=== PATIENT | female | born 1940 | race African-American/Black ===

== ENCOUNTER 2016-11-10 09:03 | Outpatient (CLI) | payer MEDICARE ==
[2010-10-19 10:29] VITALS: BMI 29.1
== END 2016-11-10 09:38 ==
LOC: D.MAMMO 09:03
DX: Z12.31 Encounter for screening mammogram for malignant neoplasm of breast (principal)

== ENCOUNTER → 2016-11-12 14:05 | Outpatient (CLI) | payer MEDICARE ==
[2010-10-19 10:29] VITALS: BMI 29.1
== END | disposition home or self-care (01) ==
LOC: D.MRI 14:05
DX: M25.512 Pain in left shoulder (principal)

== ENCOUNTER → 2017-07-08 08:45 | Outpatient (CLI) | payer MEDICARE ==
[2010-10-19 10:29] VITALS: BMI 29.1
== END | disposition home or self-care (01) ==
LOC: D.MAMMO 08:45
DX: N64.4 Mastodynia (principal); R60.0 Localized edema

== ENCOUNTER → 2017-12-09 15:19 | Outpatient (CLI) | payer MEDICARE ==
[2010-10-19 10:29] VITALS: BMI 29.1
[2017-12-09 16:12] LABS: CALC OSMOLALITY 285 mosm/kg (275-300); CALCIUM 8.7 mg/dL (8.5-10.1); CARBON DIOXIDE 27.2 mmol/L (21.0-32.0); CHLORIDE - SERUM 109 mmol/L (98-107); CREATININE - SERUM 0.6 mg/dL (0.6-1.3); GLUCOSE 93 mg/dL (74-106); POTASSIUM - SERUM 3.8 mmol/L (3.5-5.1); SODIUM 144 mmol/L (136-145); UREA NITROGEN 11 mg/dL (7-18); eGFR NON AFRICAN AMERICAN > 90 mL/min (90-120)
== END | disposition home or self-care (01) ==
LOC: D.LAB 15:19 → D.CT 16:00
PROVIDERS: Internal Medicine Pulmonary Disease
DX: R06.00 Dyspnea, unspecified (principal)

== ENCOUNTER → 2018-01-06 12:48 | Outpatient (CLI) | payer MEDICARE ==
[2010-10-19 10:29] VITALS: BMI 29.1
== END | disposition home or self-care (01) ==
LOC: D.RT 12:48
DX: R06.00 Dyspnea, unspecified (principal)

== ENCOUNTER → 2018-01-31 16:08 | Outpatient (CLI) | payer MEDICARE ==
[2010-10-19 10:29] VITALS: BMI 29.1
== END | disposition home or self-care (01) ==
LOC: D.MRI 16:08
DX: R51 Headache (principal); M54.2 Cervicalgia

== ENCOUNTER 2019-01-11 09:00 | Outpatient (CLI) | payer MEDICARE, MEDICAID ==
[2010-10-19 10:29] VITALS: BMI 29.1
== END 2019-01-11 10:00 | disposition home or self-care (01) ==
LOC: D.MAMMO 09:00
PROVIDERS: ATTEND Obstetrics & Gynecology
DX: Z85.3 Personal history of malignant neoplasm of breast (principal)

== ENCOUNTER → 2019-05-25 08:11 | Outpatient (CLI) | payer MEDICARE, MEDICAID ==
[2010-10-19 10:29] VITALS: BMI 29.1
== END | disposition home or self-care (01) ==
LOC: D.NM 08:11
PROVIDERS: ATTEND Legal Medicine
DX: M85.80 Other specified disorders of bone density and structure, unspecified site (principal); Z78.0 Asymptomatic menopausal state

== ENCOUNTER → 2019-07-02 10:11 | Outpatient (CLI) | payer MEDICARE, MEDICAID ==
[2010-10-19 10:29] VITALS: BMI 29.1
== END | disposition home or self-care (01) ==
LOC: D.CT 10:11
PROVIDERS: ATTEND Family Medicine
DX: R10.9 Unspecified abdominal pain (principal); K59.00 Constipation, unspecified; R31.21 Asymptomatic microscopic hematuria

== ENCOUNTER 2019-08-16 16:40 | Emergency (ER) | payer MEDICARE, MEDICAID ==
[~2019-08-16] VITALS: Ht 165.1 cm; Wt 72.3 kg
[2019-08-16 16:50] VITALS: Ht 165.1 cm; Wt 72.3 kg
[2019-08-16] MEDS ORDERED: CIPRO500 MG PO (17:40)
[2019-08-16] MEDS ORDERED: CRESTOR10 MG PO (17:40)
[2019-08-16] MEDS ORDERED: CYCLOBENZAPRINE10 MG PO (17:41)
[2019-08-16] MEDS ORDERED: LUMIGAN 0.01%2.5 ML EACH EYE (17:42)
[2019-08-16 17:55] LABS: BASOPHILS 0.4 % (0-2); EOSINOPHILS 3.1 % (0-7); HEMATOCRIT 38.1 % (36.0-48.0); HEMOGLOBIN 12.5 g/dL (12-16); LYMPHOCYTES 34.7 % (15-50); MCH 30.9 pg (26.0-34.0); MCHC 32.8 g/dL (31.0-37.0); MCV 94.1 fL (80.0-100.0); MEAN PLATELET VOLUME 9.7 fL (7.4-10.4); MONOCYTES 7.1 % (2-11); NEUTROPHILS 54.7 % (40-80); PLATELET COUNT 196 10x3/uL (130-400); RBC 4.05 10x6/uL (4.00-5.40); RDW 13.1 % (11.5-14.5); WBC 4.8 10x3/uL (4.8-10.8)
[2019-08-16 18:07] LABS: CALC OSMOLALITY 285 mosm/kg (275-300); CARBON DIOXIDE 28.3 mmol/L (21.0-32.0); CHLORIDE - SERUM 108 mmol/L (98-107); CREATININE - SERUM 0.8 mg/dL (0.6-1.3); GLUCOSE 86 mg/dL (74-106); POTASSIUM - SERUM 3.8 mmol/L (3.5-5.1); SODIUM 144 mmol/L (136-145); UREA NITROGEN 13 mg/dL (7-18); eGFR NON AFRICAN AMERICAN 74 mL/min (90-120)
[2019-08-16 18:13] LABS: ALBUMIN 3.5 g/dL (3.4-5.0); ALKALINE PHOSPHATASE 48 U/L (30-120); ALT (SGPT) 23 U/L (10-68); AMYLASE - SERUM 122 U/L (25-115); BILIRUBIN - TOTAL 0.67 mg/dL (0.2-1.3); LIPASE 149 U/L (73-393); PROTEIN - SERUM 7.4 g/dL (6.4-8.2)
[2019-08-16 18:16] LABS: TROPONIN-I < 0.017 ng/mL (0.000-0.060)
[2019-08-16 18:30] LABS: BILIRUBIN NEGATIVE (NEGATIVE); GLUCOSE NEGATIVE (NEGATIVE); KETONE NEGATIVE (NEGATIVE); NITRITE NEGATIVE (NEGATIVE); UROBILINOGEN NORMAL (NORMAL)
[2019-08-16 18:33] LABS: BACTERIA NONE SEEN /hpf (NEGATIVE); RED CELLS - URINE RARE /hpf (0-5); WHITE CELLS - URINE 0-5 /hpf (NEGATIVE)
[2019-08-16 20:23] VITALS: BP 153/85
== END 2019-08-16 20:20 | disposition home or self-care (01) ==
LOC: D.ER 16:40
PROVIDERS: Family Medicine
DX: K59.00 Constipation, unspecified (principal)

== ENCOUNTER 2019-08-24 21:42 | Observation (INO) | payer MEDICARE, MEDICAID ==
[~2019-08-24] VITALS: Ht 162.6 cm; Wt 74.6 kg
[~2019-08-24 21:42] MED LIST: CIPRO500 MG PO; CRESTOR10 MG PO; CYCLOBENZAPRINE10 MG PO; LUMIGAN 0.01%2.5 ML EACH EYE
[2019-08-24] MEDS ORDERED: AMOXICILLIN500 M1 PO (21:56)
[2019-08-24 22:29] LABS: BILIRUBIN NEGATIVE (NEGATIVE); GLUCOSE NEGATIVE (NEGATIVE); KETONE NEGATIVE (NEGATIVE); NITRITE NEGATIVE (NEGATIVE); UROBILINOGEN NORMAL (NORMAL)
[2019-08-24 22:31] LABS: CALC OSMOLALITY 272 mosm/kg (275-300); CALCIUM 9.1 mg/dL (8.5-10.1); CARBON DIOXIDE 27.9 mmol/L (21.0-32.0); CHLORIDE - SERUM 106 mmol/L (98-107); CREATININE - SERUM 0.6 mg/dL (0.6-1.3); GLUCOSE 89 mg/dL (74-106); POTASSIUM - SERUM 4.8 mmol/L (3.5-5.1); RED CELLS - URINE OCC /hpf (0-5); SODIUM 137 mmol/L (136-145); UREA NITROGEN 12 mg/dL (7-18); WHITE CELLS - URINE OCC /hpf (NEGATIVE); eGFR NON AFRICAN AMERICAN > 90 mL/min (90-120)
[2019-08-24 22:32] VITALS: BP 151/81
[2019-08-24 22:40] LABS: ALBUMIN 3.3 g/dL (3.4-5.0); ALKALINE PHOSPHATASE 51 U/L (30-120); ALT (SGPT) 21 U/L (10-68); AMYLASE - SERUM 84 U/L (25-115); LIPASE 93 U/L (73-393); PROTEIN - SERUM 7.2 g/dL (6.4-8.2); TROPONIN-I < 0.017 ng/mL (0.000-0.060)
[2019-08-24 22:51] LABS: BASOPHILS 0.4 % (0-2); EOSINOPHILS 3.2 % (0-7); HEMATOCRIT 35.8 % (36.0-48.0); IMMATURE GRANULOCYTES 0.2 % (0-5); LYMPHOCYTES 35.9 % (15-50); MCH 30.9 pg (26.0-34.0); MCHC 33.5 g/dL (31.0-37.0); MCV 92.3 fL (80.0-100.0); MEAN PLATELET VOLUME 9.5 fL (7.4-10.4); MONOCYTES 9.7 % (2-11); NEUTROPHILS 50.6 % (40-80); PLATELET COUNT 192 10x3/uL (130-400); RBC 3.88 10x6/uL (4.00-5.40); WBC 5.3 10x3/uL (4.8-10.8)
--- NOTE | 2019-08-25 02:20 | NUR ---
RECEIVED PT TO FLOOR FROM ER VIA WHEELCHAIR ACCOMPANIED BY FAMILY. REVIEWED HISTORY AND HOME MEDS. ASSESSMENT COMPLETE PER FLOWSHEET. ADMINISTERED ONE FLEETS ENEMA. PT HAD MEDIUM SOFT BROWN STOOL. PATRIA TORO ROUNDED. WILL REPEAT FLEETS ENEMA IN TWO HOURS. NO OTHER NEEDS. WILL CONTINUE TO MONITOR.
[2019-08-25 03:30] VITALS: BP 150/88; Ht 162.6 cm; Wt 74.6 kg
[2019-08-25 04:00] VITALS: BP 136/65
--- NOTE | 2019-08-25 05:18 | NUR ---
I have reviewed this patient and I concur with the Shift Assessment completed by the Licensed Practical Nurse today this shift.
[2019-08-25 06:41] LABS: BASOPHILS 0.2 % (0-2); HEMATOCRIT 36.3 % (36.0-48.0); HEMOGLOBIN 12.2 g/dL (12-16); IMMATURE GRANULOCYTES 0.2 % (0-5); LYMPHOCYTES 24.7 % (15-50); MCH 30.9 pg (26.0-34.0); MCHC 33.6 g/dL (31.0-37.0); MCV 91.9 fL (80.0-100.0); MEAN PLATELET VOLUME 9.7 fL (7.4-10.4); MONOCYTES 10.7 % (2-11); NEUTROPHILS 61.2 % (40-80); PLATELET COUNT 178 10x3/uL (130-400); RBC 3.95 10x6/uL (4.00-5.40); RDW 12.9 % (11.5-14.5); WBC 5.6 10x3/uL (4.8-10.8)
[2019-08-25 06:46] LABS: APTT 33.3 SECONDS (22.8-39.4); INR 1.06 (0.85-1.17); PROTIME 13.7 SECONDS (11.6-15.0)
[2019-08-25 06:54] LABS: ALBUMIN 3.3 g/dL (3.4-5.0); ALKALINE PHOSPHATASE 44 U/L (30-120); ALT (SGPT) 17 U/L (10-68); BILIRUBIN - TOTAL 0.77 mg/dL (0.2-1.3); CALCIUM 8.5 mg/dL (8.5-10.1); CARBON DIOXIDE 26.6 mmol/L (21.0-32.0); CHLORIDE - SERUM 108 mmol/L (98-107); CREATININE - SERUM 0.6 mg/dL (0.6-1.3); GLUCOSE 96 mg/dL (74-106); MAGNESIUM - SERUM 1.8 mg/dL (1.8-2.4); PROTEIN - SERUM 6.9 g/dL (6.4-8.2); SODIUM 142 mmol/L (136-145); eGFR NON AFRICAN AMERICAN > 90 mL/min (90-120)
[2019-08-25 06:55] LABS: CALC OSMOLALITY 280 mosm/kg (275-300); POTASSIUM - SERUM 3.3 mmol/L (3.5-5.1); UREA NITROGEN 8 mg/dL (7-18)
--- NOTE | 2019-08-25 07:50 | NUR ---
PT IS RESTING IN BED WITH EYES OPEN. RESPIRATIONS ARE EVEN AND UNLABORED. PT IS AAO X 4. BS ARE ACTIVE X 4. PT DENIES PRESENCE OF TENDERNESS UPON PALPATION TO ALL QUADRANTS OF ABDOMEN. FIRMNESS FELT TO LLQ. PT REPORTS "ITS BEEN LIKE THAT FOR A WHILE". PT REPORTS "A LITTLE SWELLING" TO THE LLQ THAT PT REPORTS "IS NEW". PT STATES THAT SHE HAS HAD BM SINCE ADMISSION AND DENIES PRESENCE OF PAIN DURING DEFECATION BUT REPORTS PAIN TO THE LOWER ABDOMINAL AREA DESCRIBED AT CRAMPING IN NATURE BUT DENIES NEEDS AT THIS TIME. PT DENIES PRESENCE OF NUMBNESS/TINGLING/N/V AT THIS TIME. SCDS REFUSED. BED IS IN THE LWOEST POSITION. CALL LIGHT AND BEDSIDE TABLE ARE WITHIN REACH. SIDE RAILS X 2. PT AND PT FAMILY DENY FURTHER NEEDS. WILL CONT TO MONITOR.
[2019-08-25 08:29] VITALS: BP 127/63
--- NOTE | 2019-08-25 09:10 | NUR ---
INCENTIVE SPIROMETER GIVEN TO PT. PT EDUCATED ON USE AND IMPRTANCE OF USE. PT VERBALIZES UNDERSTANDING AND GIVES APPROPRIATE RETURN DEMONSTRATION REACHIG 1000. PT FAMILY IS AT BEDSIDE. BED IS IN THE LOWEST POSITION. CALL LIGHT AND BEDSIDE TABLE ARE WITHIN REACH. SIDE RAILS X 2. PT AND PT FAMILY DENY FURTHER NEEDS AT THIS TIME. WILL CONT TO MONITOR.
[2019-08-25 12:47] VITALS: BP 114/60
--- NOTE | 2019-08-25 14:29 | NUR ---
PT RESTING COMFORTABLY IN BED. PT STATES THAT SHE HAS "A LITTLE BIT OF PAIN" TO THE LOWER ABDOMINAL REGION BUT STATES THAT IT HAS "GOTTEN A LITTLE BETTER THAN BEFORE". PT DAUGHTER AT BEDSIDE AND STATES PT HAS HAD SMALL BM TODAY "BUT IT WASNT MUCH". PT AND PT FAMILY DENY FURTHER NEEDS. BED IS IN THE LOWEST POSITION. CALL LIGHT AND BEDSIDE TABLE ARE WITHIN REACH. SIDE RAILS X 2. PT WILL CONT TO MONITOR.
[2019-08-25 16:45] VITALS: BP 122/73
[2019-08-25 20:00] VITALS: BP 120/65
--- NOTE | 2019-08-25 23:00 | NUR ---
DID SOAP SUDS ENIMA WITH 1500ML WATER AND SOAP. NO BM.
[2019-08-26] VITALS: BP 142/57
[2019-08-26 04:00] VITALS: BP 112/61
[2019-08-26 06:06] LABS: BASOPHILS 0.3 % (0-2); EOSINOPHILS 2.4 % (0-7); HEMATOCRIT 35.2 % (36.0-48.0); HEMOGLOBIN 11.5 g/dL (12-16); LYMPHOCYTES 32.2 % (15-50); MCH 30.4 pg (26.0-34.0); MCHC 32.7 g/dL (31.0-37.0); MCV 93.1 fL (80.0-100.0); MEAN PLATELET VOLUME 9.9 fL (7.4-10.4); MONOCYTES 9.5 % (2-11); NEUTROPHILS 55.6 % (40-80); PLATELET COUNT 198 10x3/uL (130-400); RBC 3.78 10x6/uL (4.00-5.40); RDW 13.2 % (11.5-14.5); WBC 5.8 10x3/uL (4.8-10.8)
[2019-08-26 06:29] LABS: ALKALINE PHOSPHATASE 38 U/L (30-120); ALT (SGPT) 20 U/L (10-68); BILIRUBIN - TOTAL 0.79 mg/dL (0.2-1.3); CALC OSMOLALITY 277 mosm/kg (275-300); CALCIUM 8.5 mg/dL (8.5-10.1); CARBON DIOXIDE 23.8 mmol/L (21.0-32.0); CHLORIDE - SERUM 109 mmol/L (98-107); CREATININE - SERUM 0.7 mg/dL (0.6-1.3); GLUCOSE 86 mg/dL (74-106); MAGNESIUM - SERUM 1.7 mg/dL (1.8-2.4); PHOSPHOROUS 3.8 mg/dL (2.5-4.9); PROTEIN - SERUM 6.3 g/dL (6.4-8.2); SODIUM 141 mmol/L (136-145); UREA NITROGEN 6 mg/dL (7-18); eGFR NON AFRICAN AMERICAN 86 mL/min (90-120)
[2019-08-26 06:31] LABS: POTASSIUM - SERUM 3.5 mmol/L (3.5-5.1)
--- NOTE | 2019-08-26 07:30 | NUR ---
PATIENT LAYING ON BACK. EYES CLOSED EASILY AWAKENED. FAMILY IN ROOM. NO NEEDS AT THIS TIME. CL IN REACH. WCTM
[2019-08-26 07:39] VITALS: BP 130/75
[2019-08-26 11:47] VITALS: BP 140/81
--- NOTE | 2019-08-26 12:11 | NUR ---
PATIENT LAYING IN BACK IN BED. NO NEEDS AT THIS TIME. STATES FAMILY WENT DOWNSTAIRS TO EAT. CL IN REACH. WILL NOTIFY ME OF ANY NEEDS. CALL LIGHT IN REACH. WCTM
[2019-08-26 15:19] VITALS: BP 110/61
--- NOTE | 2019-08-26 17:02 | NUR ---
PATIENT STATES THAT SHE HAS HAD 3 FULL GLASSES OF THE GOLYTELY. REQUESTS 3 MORE BEBETO LEMON [place] BECAUSE THAT IS HELPING HER GET THE GOLYTELY DOWN. RECEIVED THE BEBETO. MIGEL IN REACH. TM
[2019-08-26 20:00] VITALS: BP 146/78
--- NOTE | 2019-08-26 20:58 | NUR ---
UP AMBULATING IN ROOM. RESP EVEN AND UNALBORED. NO DISTRESS NOTED. IV TO LFA INTACT WITHOUT REDNESS OR EDEMA NOTED. ABD DISTENDED.EYE GTTS REFUSED. PATIENT AND DAUGHTER STATES WRONG MEDICATION. 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 XALANTAN GTTS SENT FROM PHARMACY..NO COMPLAITNS VOICED.
[2019-08-27] VITALS: BP 135/64
--- NOTE | 2019-08-27 02:50 | NUR ---
I have reviewed this patient and I concur with the Shift Assessment completed by the Licensed Practical Nurse today this shift.
[2019-08-27 04:00] VITALS: BP 120/57
[2019-08-27 05:10] LABS: BASOPHILS 0.6 % (0-2); EOSINOPHILS 4.7 % (0-7); HEMATOCRIT 33.6 % (36.0-48.0); HEMOGLOBIN 11.2 g/dL (12-16); IMMATURE GRANULOCYTES 0.2 % (0-5); LYMPHOCYTES 37.9 % (15-50); MCH 30.9 pg (26.0-34.0); MCHC 33.3 g/dL (31.0-37.0); MCV 92.6 fL (80.0-100.0); MEAN PLATELET VOLUME 10.1 fL (7.4-10.4); MONOCYTES 10.5 % (2-11); NEUTROPHILS 46.1 % (40-80); PLATELET COUNT 194 10x3/uL (130-400); RBC 3.63 10x6/uL (4.00-5.40); RDW 13.1 % (11.5-14.5); WBC 5.2 10x3/uL (4.8-10.8)
[2019-08-27 05:48] LABS: ALBUMIN 2.9 g/dL (3.4-5.0); ALKALINE PHOSPHATASE 36 U/L (30-120); ALT (SGPT) 20 U/L (10-68); BILIRUBIN - TOTAL 0.74 mg/dL (0.2-1.3); CALC OSMOLALITY 285 mosm/kg (275-300); CALCIUM 8.3 mg/dL (8.5-10.1); CARBON DIOXIDE 25.4 mmol/L (21.0-32.0); CHLORIDE - SERUM 111 mmol/L (98-107); CREATININE - SERUM 0.6 mg/dL (0.6-1.3); GLUCOSE 90 mg/dL (74-106); MAGNESIUM - SERUM 1.5 mg/dL (1.8-2.4); POTASSIUM - SERUM 3.4 mmol/L (3.5-5.1); PROTEIN - SERUM 6.1 g/dL (6.4-8.2); SODIUM 145 mmol/L (136-145); eGFR NON AFRICAN AMERICAN > 90 mL/min (90-120)
[2019-08-27 06:12] LABS: PHOSPHOROUS 2.7 mg/dL (2.5-4.9); UREA NITROGEN 4 mg/dL (7-18)
--- NOTE | 2019-08-27 07:13 | NUR ---
PHAM[facility]Y CALLED REGARDING EYE GTTS. STATES XALATAN IS SUBSTITUTED FOR LUMIGAN EYE GTTS.PATIENT NOTIFIED
--- NOTE | 2019-08-27 07:40 | NUR ---
PT RESTING IN BED QUIETLY. AWAKENS STAFF ENTERS ROOM. RESP EVEN AND UNLABORED. FAMILY AT BEDSIDE. IF TO RIGHT WRIST WITH NS @ 100ML/HR INFUSING VIA PUMP. SITE WITHOUT REDNESS OR EDEMA. DENIES FURTHER NEEDS AT THIS TIME. CL WITHIN REACH. ENCOURAGED TO CALL WITH NEEDS. CONTINUE POC
[2019-08-27 08:58] VITALS: BP 137/69
[2019-08-27] MEDS ORDERED: MIRALAX17 GM PO (12:18)
[2019-08-27] MEDS ORDERED: COLACE100 MG PO (12:18)
== END 2019-08-27 13:47 | disposition home or self-care (01) ==
LOC: D.ER 21:42 → D.MS 08-25 00:45 → OBSVTIME 08-25 00:45 → D.MS 08-25 00:45
PROVIDERS: Family Medicine; ADMIT Internal Medicine Nephrology; ATTEND Internal Medicine Nephrology
DX: K56.41 Fecal impaction (principal); M19.90 Unspecified osteoarthritis, unspecified site; E87.6 Hypokalemia; D64.9 Anemia, unspecified; Z85.3 Personal history of malignant neoplasm of breast

== ENCOUNTER → 2020-01-02 23:04 | Outpatient (CLI) | payer MEDICARE, MEDICAID ==
[2019-08-25 03:30] VITALS: BMI 28.2
[~2020-01-02 23:04] MED LIST changes: +AMOXICILLIN500 M1 PO; +COLACE100 MG PO; +MIRALAX17 GM PO
== END | disposition home or self-care (01) ==
LOC: D.MAMMO 09:30
PROVIDERS: ATTEND Family Medicine
DX: Z12.31 Encounter for screening mammogram for malignant neoplasm of breast (principal)

== ENCOUNTER → 2020-01-03 08:14 | Outpatient (CLI) | payer MEDICARE, MEDICAID ==
[2019-08-25 03:30] VITALS: BMI 28.2
== END | disposition home or self-care (01) ==
LOC: D.MRI 08:14
PROVIDERS: ATTEND Family Medicine
DX: R51 Headache (principal)

== ENCOUNTER → 2020-10-15 08:48 | Outpatient (CLI) | payer MEDICARE, MEDICAID ==
[2019-08-25 03:30] VITALS: BMI 28.2
== END | disposition home or self-care (01) ==
LOC: D.CT 09-25 09:00
PROVIDERS: ATTEND Family Medicine
DX: R10.9 Unspecified abdominal pain (principal)

== ENCOUNTER → 2020-11-19 09:15 | Outpatient (CLI) | payer MEDICARE, MEDICAID ==
[2019-08-25 03:30] VITALS: BMI 28.2
== END | disposition home or self-care (01) ==
LOC: D.US 09:15
PROVIDERS: ATTEND Nurse Practitioner
DX: I73.9 Peripheral vascular disease, unspecified (principal)